=== PATIENT | female | born 1995 | race Caucasian/White ===

== ENCOUNTER 2019-06-02 01:53 | Emergency (ER) | payer OTHER ==
[~2019-06-02] VITALS: Ht 157.5 cm; Wt 60.5 kg
[~2019-06-02 01:53] MED LIST: CEPH-443 PO; IBUP-1542 PO
[2019-06-02 02:00] VITALS: BP 117/60; PULSE 94; RESP 18; Ht 157.5 cm; Wt 60.5 kg
[2019-06-02] MEDS ORDERED: KETOROLAC 30 MG INJ IM STA (02:54)
--- NOTE | 2019-06-03 05:47 | ERD ---
ER Documentation Chief Complaint Chief Complaint C/O SEVERE PELVIC CRAMPING SINCE YESTERDAY, STATES STARTING PERIOD SOON HPI 24-year-old female presenting to the emergency department complaining of intermittent, 8/10 severity, bilateral suprapubic cramping which began just prior to arrival. She tried no medication. She denies any fevers, vaginal bleeding, or other symptoms at this time. Her last menstrual cycle was 05/07/2019. ROS All systems reviewed and are negative except as per history of present illness. Medications Home Meds Active Scripts Ibuprofen* (Motrin*) 600 Mg Tab, 600 MG PO Q6, #30 TAB Prov:DEQUAN HAIRSTON PA-C 06/02/19 Cephalexin* (Keflex*) 500 Mg Capsule, 500 MG PO TID for 7 Days, CAP Prov:DEQUAN HAIRSTON PA-C 06/02/19 Allergies Allergies: Coded Allergies: No Known Allergy (Unverified , 06/02/19) PMhx/Soc Medical and Surgical Hx: pt denies Medical Hx, pt denies Surgical Hx Hx Alcohol Use: No Hx Substance Use: No Hx Tobacco Use: No Smoking Status: Never smoker FmHx Family History: No diabetes Physical Exam Vitals Vital Signs Date Temp Pulse Resp B/P (MAP) Pulse Ox O2 O2 Flow FiO2 Time Delivery Rate 06/02/19 98.4 94 18 117/60 99 02:00 (79) Physical Exam Const: No acute distress Head: Atraumatic Eyes: Normal Conjunctiva ENT: Normal External Ears, Nose and Mouth. Neck: Full range of motion. No meningismus. Resp: Clear to auscultation bilaterally Cardio: Regular rate and rhythm, no murmurs Abd: Soft, non tender, non distended. Normal bowel sounds. No rebound tenderness or guarding. No McBurney's point tenderness. No suprapubic tenderness. Skin: No petechiae or rashes Back: No midline or flank tenderness Ext: No cyanosis, or edema Neur: Awake and alert Psych: Normal Mood and Affect Results 24 hrs Laboratory Tests Test 06/02/19 02:29 06/02/19 02:31 POC Beta HCG, Qualitative NEGATIVE Bedside Urine pH (LAB) 6.0 Bedside Urine Protein (LAB) 1+ Bedside Urine Glucose (UA) Negative Bedside Urine Ketones (LAB) Trace Bedside Urine Blood Trace-intact Bedside Urine Nitrite (LAB) Negative Bedside Urine Leukocyte Esterase (L Trace Current Medications Medications Dose Sig/Rigo Start Time Status Last (Trade) Ordered Route PRN Stop Time Admin Dose Reason Admin Ketorolac 30 mg ONCE STAT 06/02/19 DC 06/02/19 Tromethamine IM 02:54 06/02/19 03:07 (Toradol) 02:56 Procedures/MDM 24-year-old female presenting to the emergency department with signs, symptoms, work-up most consistent with urinary tract infection. No evidence to suggest ectopic , tubo-ovarian abscess, ovarian torsion, PID, or other emergent process. Patient is nontoxic, well-appearing, afebrile with stable vital signs. Patient is stable and appropriate for discharge and further outpatient management with prescriptions. She was advised to return immediately for any new or worsening or concerning symptoms. She understands and agrees with the plan. Departure Diagnosis: Primary Impression: UTI (urinary tract infection) Urinary tract infection type: acute cystitis Hematuria presence: without hematuria Qualified Codes: N30.00 - Acute cystitis without hematuria Condition: Fair Patient Instructions: Understanding Urinary Tract Infections (UTIs) Additional Instructions: Call your primary care doctor TOMORROW for an appointment during the next 1-2 days.See the doctor sooner or return here if your condition worsens before your appointment time. DEQUAN HAIRSTON PA-C Jun 03, 2019 05:47
== END 2019-06-02 04:20 | disposition home or self-care (01) ==
LOC: FTE 01:53
DX: N30.00 Acute cystitis without hematuria (principal)
CPT/HCPCS: 81003; 81025; 87086; 96372; 99284; J1885